=== PATIENT | male | born 1995 | race Two or more races ===

== ENCOUNTER 2019-09-18 20:15 | Emergency (ER) | payer OTHER | END 2019-09-18 21:30 | disposition home or self-care (01) | LOC: UCCORT 20:15 | DX: S46.911A Strain of unspecified muscle, fascia and tendon at shoulder and upper arm level, right arm, initial encounter (principal); W18.09XA Striking against other object with subsequent fall, initial encounter; Y93.89 Activity, other specified; Y92.9 Unspecified place or not applicable; Y99.0 Civilian activity done for income or pay | CPT/HCPCS: 99202; G0463 ==